=== PATIENT | male | born 1965 | race Caucasian/White ===

== ENCOUNTER 2023-05-18 16:10 | Inpatient (IN) | payer BC ==
[2023-05-18] MEDS ORDERED: Ondansetron PF 4 MG/2 ML Vial ONE (16:53)
[2023-05-18] MEDS ORDERED: Ketorolac Tromethamine 30 MG/ML VIAL ONE (16:53)
[2023-05-18] MEDS ORDERED: Morphine 4 MG/ML VIAL ONE ×2 (16:53→17:52)
[2023-05-18 17:05] LABS: #Basophils 0.1 10x3/uL (0.0-0.2); #Eosinphils 0.2 10x3/uL (0.0-0.5); #Monocytes 0.5 10x3/uL (0.0-1.1); #Neutrophils 3.6 10x3/uL (1.5-8.4); %Basophils 1.1 % (0.0-2.0); %Eosinophils 3.4 % (0.0-6.0); %Lymphocytes 31.5 % (18.0-47.0); %Monocytes 8.3 % (0.0-10.0); %Neutrophils 55.5 % (40.0-75.0); Hematocrit 47.6 % (38.8-50.0); Hemoglobin 16.4 g/dL (13.5-17.5); Mean Corpuscular HGB CONC 34.5 g/dL (32.0-36.0); Mean Corpuscular Hemoglobin 30.7 pg (27.0-33.0); Mean Platelet Volume 9.3 fl (7.4-10.4); Platelet Count 317 10x3/uL (150-450); RBC Distribution Width 12.3 % (11.5-14.5); Red Blood Cell (RBC) Count 5.35 10x6/uL (4.32-5.72); White Blood Cell (WBC) Count 6.5 10x3/uL (3.5-10.5)
[2023-05-18 17:24] LABS: ALT (SGPT) 15 U/L (8-55); AST (SGOT) 14 U/L (5-34); Albumin 4.4 g/dL (3.5-5.0); Alkaline Phosphatase 48 U/L (40-110); Anion Gap 15 mmol/L (10-20); BUN (Urea Nitrogen) 19 mg/dL (8.4-25.7); Bilirubin, Total 0.5 mg/dL (0.2-1.2); Calc. Creatinine Clearance 0 mL/min (70-130); Calcium 9.3 mg/dL (7.8-10.44); Carbon Dioxide 24 mmol/L (22-29); Chloride 102 mmol/L (98-107); Estimated GFR 82; Globulin 2.5 g/dL (2.4-3.5); Glucose 138 mg/dL (70-105); Potassium 3.9 mmol/L (3.5-5.1); Protein, Total 6.9 g/dL (6.0-8.3); Sodium 137 mmol/L (136-145)
[2023-05-18 17:24] LABS: Bilirubin Neg (Negative); Blood, Urine 250 (Negative); Clarity Clear (Clear); Glucose, Urine (Dipstick) Normal (Negative); Ketone, Urine Negative (Negative); Leukocyte Negative (Negative); Nitrite Negative (Negative); Protein, Urine (Dipstick) 15 mg/dl (Neg-Trace); Urobilinogen Normal mg/dL (Less than 2)
[2023-05-18 17:36] LABS: Bacteria/HPF Rare-Few HPF (None Seen); CAUTI Indications for Culture Dysuria,urgency,freq; RBC/HPF Greater than 50 HPF (0-3); Squamous Epithelial None Seen HPF (0-3); Transitional Epithelial 0-3 HPF (None Seen); WBC/HPF 0-3 HPF (0-3)
[2023-05-18 17:37] LABS: Urine Culture Reflex No No
[2023-05-18] MEDS ORDERED: Bisacodyl 5 MG TAB PO PRN (18:27)
[2023-05-18] MEDS ORDERED: Senokot S 8.6-50 MG TAB PO PRN (18:27)
[2023-05-18] MEDS ORDERED: Communication Order-Pharmacy FS ONE (18:27)
[2023-05-18] MEDS ORDERED: Bisacodyl 10 MG SUPP PR PRN (18:27)
[2023-05-18] MEDS ORDERED: Ondansetron ODT 4 MG TAB PO PRN (18:27)
[2023-05-18 19:20] VITALS: BMI 26.4
[2023-05-18] MEDS: Morphine 2 MG/ML VIAL SLOW IVP PRN (19:31)
[2023-05-18] MEDS ORDERED: Ondansetron PF 4 MG/2 ML Vial IVP PRN (21:10)
[2023-05-18] MEDS: Potassium Chloride 20 MEQ in Lactated Ringer's 1,000 ML IV SCH (21:29)
[2023-05-18] MEDS: oxyCODONE 5 MG TAB PO PRN (22:30)
[2023-05-18] MEDS ORDERED: Naproxen 500 MG TAB PO SCH (23:00)
[2023-05-19] MEDS: Morphine 2 MG/ML VIAL SLOW IVP PRN (00:08)
[2023-05-19] MEDS: Acetaminophen 500 MG TAB PO SCH ×3 (01:12→11:15)
[2023-05-19 05:00] LABS: #Basophils 0.1 10x3/uL (0.0-0.2); #Eosinphils 0.2 10x3/uL (0.0-0.5); #Monocytes 0.7 10x3/uL (0.0-1.1); #Neutrophils 4.9 10x3/uL (1.5-8.4); %Basophils 0.7 % (0.0-2.0); %Monocytes 9.8 % (0.0-10.0); %Neutrophils 64.4 % (40.0-75.0); Hemoglobin 14.6 g/dL (13.5-17.5); Mean Corpuscular Hemoglobin 30.7 pg (27.0-33.0); Mean Corpuscular Volume 90.3 fl (81.2-95.1); Mean Platelet Volume 9.3 fl (7.4-10.4); Platelet Count 283 10x3/uL (150-450); RBC Distribution Width 12.4 % (11.5-14.5); Red Blood Cell (RBC) Count 4.76 10x6/uL (4.32-5.72); White Blood Cell (WBC) Count 7.6 10x3/uL (3.5-10.5)
[2023-05-19 05:15] LABS: Anion Gap 11 mmol/L (10-20); BUN (Urea Nitrogen) 16 mg/dL (8.4-25.7); Calc. Creatinine Clearance 93 mL/min (70-130); Calcium 8.3 mg/dL (7.8-10.44); Carbon Dioxide 27 mmol/L (22-29); Chloride 104 mmol/L (98-107); Estimated GFR 78; Glucose 104 mg/dL (70-105); Potassium 4.1 mmol/L (3.5-5.1); Sodium 138 mmol/L (136-145)
[2023-05-19] MEDS: oxyCODONE 5 MG TAB PO PRN ×2 (05:24→09:30)
[2023-05-19] MEDS: Potassium Chloride 20 MEQ in Lactated Ringer's 1,000 ML IV SCH (08:46)
[2023-05-19] MEDS ORDERED: Losartan Potassium 50 MG TAB PO SCH (09:00)
[2023-05-19] MEDS ORDERED: Naproxen 500 MG TAB PO SCH (09:00)
[2023-05-19] MEDS ORDERED: Iopamidol 0 ML ONE (10:48)
[2023-05-19] MEDS ORDERED: PROPOFOL 20 ML ONE ×2 (10:52→11:26)
[2023-05-19] MEDS ORDERED: fentaNYL 50 mcg/mL 1 mL Vial ONE (10:52)
[2023-05-19] MEDS ORDERED: CEFAZOLIN 2 GM VIAL ONE (11:30)
[2023-05-19 13:04] VITALS: BP 120/80; TEMP 98.8
== END 2023-05-19 14:03 | disposition home or self-care (01) | DRG 661 ==
LOC: CSHERS 16:10 → CSHTELE 18:09
PROVIDERS: ADMIT Hospitalist; ATTEND Hospitalist
PROC: 0T778DZ Dilation of Left Ureter with Intraluminal Device, Via Natural or Artificial Opening Endoscopic (ICD-10-PCS; principal; 2023-05-19)
DX: N13.2 Hydronephrosis with renal and ureteral calculous obstruction (principal); I10 Essential (primary) hypertension; R31.9 Hematuria, unspecified; Z90.49 Acquired absence of other specified parts of digestive tract; Z98.890 Other specified postprocedural states
CPT/HCPCS: 36415; 51600; 74176; 74430; 80048; 80053; 81001; 83735; 85025; 96374; 96375; 96376; C2625; J1885; J2270; J2272; J2405; J2704; J3010; J3480; J7120; Q0162; Q9967